=== PATIENT | male | born 1970 | race Caucasian/White ===

== ENCOUNTER 2017-03-31 07:15 | Emergency (ER) | payer BC ==
[~2017-03-31] VITALS: Ht 170.2 cm; Wt 74.8 kg
[~2017-03-31 07:15] MED LIST: AMOXICILLIN500 MG PO; ANAPROX DS550 MG PO; CLINDAMYCIN HC300 MG PO; IBUPROFEN600 MG PO; IBUPROFEN800 MG PO; LEVAQUIN500 MG PO; NORCO 5-325 TA1 EACH PO; ZITHROMAX250 MG PO
[2017-03-31] MEDS ORDERED: CLEOCIN HCL300 MG PO (08:11)
[2017-03-31] MEDS ORDERED: ANUSOL-HC25 MG PR (08:11)
[2017-04-16] MEDS ORDERED: FLAGYL500 MG PO (23:13)
[2017-04-16] MEDS ORDERED: CIPRO500 MG PO (23:13)
== END 2017-03-31 08:20 | disposition home or self-care (01) ==
LOC: ED 07:15
DX: L02.31 Cutaneous abscess of buttock (principal); K64.8 Other hemorrhoids; F17.200 Nicotine dependence, unspecified, uncomplicated
CPT/HCPCS: 99283

== ENCOUNTER 2017-04-19 11:49 | Emergency (ER) | payer BC ==
[~2017-04-19] VITALS: Ht 170.2 cm; Wt 74.4 kg
[~2017-04-19 11:49] MED LIST changes: +ANUSOL-HC25 MG PR; +CIPRO500 MG PO; +CLEOCIN HCL300 MG PO; +FLAGYL500 MG PO
[2017-04-19] MEDS ORDERED: PROTONIX40 MG PO (13:32)
[2017-04-19] MEDS ORDERED: NORCO 5-325 TA1 EACH PO (13:32)
== END 2017-04-19 13:50 | disposition home or self-care (01) ==
LOC: ED 11:49
DX: K52.9 Noninfective gastroenteritis and colitis, unspecified (principal); F41.9 Anxiety disorder, unspecified; I10 Essential (primary) hypertension; F17.200 Nicotine dependence, unspecified, uncomplicated; Z79.2 Long term (current) use of antibiotics; Z79.899 Other long term (current) drug therapy
CPT/HCPCS: 74177; 80053; 81001; 82150; 83690; 85025; 96374; 96375; 99284; J1170; J2405; J7030; Q9967

== ENCOUNTER 2017-04-28 11:53 | Day surgery (SDC) | payer BC ==
[~2017-04-28] VITALS: Ht 170.2 cm; Wt 74.4 kg
[~2017-04-28 11:53] MED LIST changes: +PROTONIX40 MG PO
--- NOTE | 2017-04-28 14:11 | NUR ---
04/28/17 1410 Ronda Craig 1404 PATIENT AWAKE ON ARRIVAL TO PACU, RESP EVEN AND UNLABORED, NC AT 2 LITERS. DENIES PAIN OR NAUESA. 1410 PATIENT SITTING UP ON STRETCHER, TEXTING ON PHONE. OFF OXYGEN.
--- NOTE | 2017-04-30 13:25 | OR ---
[facility] [address] [place], [place] [address] Signed DATE OF OPERATION: 04/28/2017 SURGEON: Raji Dewitt MD PREOPERATIVE DIAGNOSIS: Episodic rectal bleeding with abdominal pain and bloating. POSTOPERATIVE DIAGNOSIS: Internal hemorrhoids. No evidence of inflammatory bowel disease. PROCEDURE: Total colonoscopy to cecum with intubation of ileum and multiple biopsies. ANESTHESIA: Intravenous sedation, fentanyl 150 mcg, Versed 7 mg. INDICATION: This 46-year-old white man is a patient of Cristopher Souza. He has been seen in the emergency room for rectal bleeding and lower abdominal pain and bloating. He sought at one time mostly to have a hemorrhoidal problem, but further concern of the possibility of inflammatory bowel disease has been made. He has undergone a CT scan, which showed possibly thickened colon throughout. Stool studies have been undertaken. He is empirically treated with Cipro 500 mg daily and Flagyl 500 three times a day. He is admitted at this time to undergo colonoscopy to assess for inflammatory bowel disease or other etiology of his symptoms. He understands the risks of bleeding, infection, and perforation related to colonoscopy and wished to proceed. FINDINGS: The prep was excellent. Complete colonoscopy was undertaken to the cecum. The ileocecal valve was easily identified and intubated. The ileum appeared reasonably normal. Biopsies were taken to assess for occult inflammatory bowel disease. The mucosa of the colon was normal as well. Biopsies taken of the rectum, however, to assess for collagenous colitis and so on. Retroflexed view did confirm internal hemorrhoidal changes. There was no sign of active fissure. DESCRIPTION OF PROCEDURE: The patient was brought to the endoscopy suite and placed in lateral decubitus position, given intravenous sedation to the point of slurred speech and nystagmus. Digital rectal examination was normal. Electronically Signed By: RAJI DEWITT MD 04/30/17 1325 PATIENT NAME: ANUJ HAWKINS OPERATIVE REPORT DATE OF : 68 REPORT #: [id number] PHYSICIAN: RAJI DEWITT MD PCP: CRISTOPHER SOUZA REPORT IS CONFIDENTIAL AND NOT TO BE RELEASED WITHOUT AUTHORIZATION [facility] [address] [place], [place] [address] Signed An Olympus video colonoscope was passed in the rectum and manipulated throughout the colon, ultimately intubating the cecum. The ileocecal valve was identified and with a fair amount of effort, ultimately intubated and the terminal ileum fully examined. The more proximal of the ileum got the more normal in looks. Biopsies were taken proximally and distally. The scope was withdrawn back to the cecum, which appeared reasonably normal. The scope was further withdrawn and examination throughout showed no sign of abnormality, specifically no diverticular formation, colitis, or cancer polyps. There were no polyps noted in any area. The rectum was normal in appearance, though it was biopsied to assess for occult colitis. Retroflexed view confirmed internal hemorrhoidal changes. Scope was removed through the anal canal carefully showing no evidence of anal fissure concordant to office examination recently. He was taken to recovery room in good condition. CONCLUDING DIAGNOSIS: No evidence of inflammatory bowel disease, cancer polyps, diverticular formation, or other issue other than internal hemorrhoids. This could certainly account for episodic rectal bleeding. PLAN: We will initiate Citrucel tablespoon daily. We will see him back in the office in about a month or so. We will go bowel hygiene tips as well. Consideration for hemorrhoidal banding might be made depending on his course at this point. MD SHARI Espinosa/DERRICKL /[id number] cc: MD Cristopher Thompson FNP Copies: BOBBY GALDAMEZ MD Electronically Signed By: RAJI DEWITT MD 04/30/17 1325 PATIENT NAME: ANUJ HAWKINS OPERATIVE REPORT DATE OF : [birth year] REPORT #: [id number] PHYSICIAN: RAJI DEWITT MD PCP: CRISTOPHER SOUZA REPORT IS CONFIDENTIAL AND NOT TO BE RELEASED WITHOUT AUTHORIZATION [address] [place], [place] [address] Signed CRISTOPHER SOUZA ~ Electronically Signed By: RAJI DEWITT MD 04/30/17 1325 PATIENT NAME: ANUJ HAWKINS OPERATIVE REPORT DATE OF : 68 REPORT #: [id number] PHYSICIAN: RAJI DEWITT MD PCP: CRISTOPHER SOUZA REPORT IS CONFIDENTIAL AND NOT TO BE RELEASED WITHOUT AUTHORIZATION
== END 2017-04-28 14:40 | disposition home or self-care (01) ==
LOC: OPS 11:53 → DS 11:53 → OPS 13:00 → DS 13:00 → OPS 14:40
PROVIDERS: Surgery
PROC: 0DBP8ZX Excision of Rectum, Via Natural or Artificial Opening Endoscopic, Diagnostic (ICD-10-PCS; 2017-04-28)
PROC: 0DBB8ZX Excision of Ileum, Via Natural or Artificial Opening Endoscopic, Diagnostic (ICD-10-PCS; principal; 2017-04-28 13:00)
DX: K62.5 Hemorrhage of anus and rectum (principal); K64.8 Other hemorrhoids; F41.9 Anxiety disorder, unspecified; I10 Essential (primary) hypertension; F17.200 Nicotine dependence, unspecified, uncomplicated; Z90.49 Acquired absence of other specified parts of digestive tract; Z98.890 Other specified postprocedural states
CPT/HCPCS: 99153; G0500; J2250; J3010; J7120

== ENCOUNTER 2017-07-04 11:58 | Day surgery (SDC) | payer BC ==
[~2017-07-04] VITALS: Ht 170.2 cm; Wt 74.4 kg
--- NOTE | 2017-07-04 13:13 | NUR ---
07/04/17 Tiana3 Bessy Mccollum 1309-PATIENT ARRIVED TO PACU ON 3L NC O2 SAT 98% PATIENT AWAKE DENIES PAIN OR NAUSEA. ABDOMEN SOFT. RR EVEN. DOZES BACK TO SLEEP
--- NOTE | 2017-07-06 09:27 | OR ---
[facility] [address] [place], [place] [address] Signed DATE OF OPERATION: 07/04/2017 SURGEON: Raji Dewitt MD PREOPERATIVE DIAGNOSES: Persistent upper abdominal fullness, bloating, and episodic pain. POSTOPERATIVE DIAGNOSES: Hiatal hernia with mild distal esophagitis and mild antral gastritis. PROCEDURES PERFORMED: Esophagogastroduodenoscopy with biopsy. ANESTHESIA: Intravenous sedation with fentanyl 100 mcg and Versed 5 mg. INDICATION: This 46-year-old white man is a patient of JUAN Franklin. I have seen him in the past for lower abdominal pain, for which colonoscopy was performed as he did have concurrent diarrhea. The colonoscopy was relatively normal. His symptoms now include upper abdominal bloating, fullness, and discomfort following meals. He does have family history of biliary disease. A gallbladder ultrasound was performed earlier this morning, which on my examination showed no sign of stones. He was admitted to undergo upper endoscopy to better characterize the problem. The patient is currently on pantoprazole (Protonix) 40 mg daily. FINDINGS: There was a hiatal hernia and mild distal esophagitis. There was no sign of Birmingham's epithelium. There was mild antral gastritis, but no ulceration. CLOtest was negative 15 minutes post procedure. The duodenum was normal. DESCRIPTION OF PROCEDURE: The patient was brought to the operating room #2, temporary endoscopy suite, placed in the lateral decubitus position, given intravenous sedation to the point of slurred speech and nystagmus with full cardiopulmonary monitoring. A bite block was placed. An Olympus video upper endoscope was passed in the hypopharynx. The vocal cords were normal. Scope was advanced to the esophagus throughout its length, it was normal, except in the distal portion, where there was mild chronic inflammatory changes, no sign of Birmingham's epithelium, stricture, neoplasm, or other issue. The scope was advanced Electronically Signed By: RAJI DEWITT MD 07/06/17 0927 PATIENT NAME: ANUJ HAWKINS OPERATIVE REPORT DATE OF : 68 REPORT #: [id number] PHYSICIAN: RAJI DEWITT MD PCP: TALIB SOUZA REPORT IS CONFIDENTIAL AND NOT TO BE RELEASED WITHOUT AUTHORIZATION [facility] [address] [place], [place] [address] Signed into the stomach, which was insufflated with air. There was no sign of bile within the stomach, fair amount of saliva though. Rugal folds appeared normal. The antrum showed mild inflammatory change. The pylorus was normal. Biopsies were taken of the antrum for both ZANA and pathologic testing. The scope was passed to the duodenum, which was insufflated with air. The second and bulbar portions appeared reasonably normal. Biopsies were obtained. The scope was withdrawn and retroflexed view undertaken showing a hiatal hernia. The proximal stomach showed no other abnormality. The scope was straightened, withdrawn to the distal esophagus, where biopsies were then obtained of the distal esophageal mucosa. There was one area, where a suspicion of possible straight relatively superficial varix was noted, but likely not corporate representative truly of portal hypertension. The scope was withdrawn and removed, and the patient was taken to the recovery room in good condition. CONCLUDING DIAGNOSIS: Notably positive for hiatal hernia and mild distal esophagitis, no evidence of Birmingham's epithelium. PLAN: Given the findings on the ultrasound earlier in the day, we will organize for CCK-HIDA test to be performed. He will see us back after that. He should maintain Protonix 40 mg daily for the time being. MD SHARI Espinosa/DERRICKL /[id number] cc: JUAN Page Copies: TALIB SOUZA ~ Electronically Signed By: RAJI DEWITT MD 07/06/17 0927 PATIENT NAME: ANUJ HAWKINS OPERATIVE REPORT DATE OF : 68 REPORT #: [id number] PHYSICIAN: RAJI DEWITT MD PCP: TALIB SOUZA REPORT IS CONFIDENTIAL AND NOT TO BE RELEASED WITHOUT AUTHORIZATION
== END 2017-07-04 13:57 | disposition home or self-care (01) ==
LOC: OPS 11:58 → DS 11:58 → OPS 13:00 → DS 13:00 → OPS 13:57
PROVIDERS: Surgery
PROC: 0DB78ZX Excision of Stomach, Pylorus, Via Natural or Artificial Opening Endoscopic, Diagnostic (ICD-10-PCS; 2017-07-04)
PROC: 0DB28ZX Excision of Middle Esophagus, Via Natural or Artificial Opening Endoscopic, Diagnostic (ICD-10-PCS; 2017-07-04)
PROC: 0DB38ZX Excision of Lower Esophagus, Via Natural or Artificial Opening Endoscopic, Diagnostic (ICD-10-PCS; 2017-07-04)
PROC: 0DB98ZX Excision of Duodenum, Via Natural or Artificial Opening Endoscopic, Diagnostic (ICD-10-PCS; principal; 2017-07-04 13:00)
DX: K21.0 Gastro-esophageal reflux disease with esophagitis (principal); K29.80 Duodenitis without bleeding; K29.50 Unspecified chronic gastritis without bleeding; K44.9 Diaphragmatic hernia without obstruction or gangrene; K31.9 Disease of stomach and duodenum, unspecified; F17.210 Nicotine dependence, cigarettes, uncomplicated
CPT/HCPCS: G0500; J2250; J3010; J7120

== ENCOUNTER 2017-08-10 06:50 | Day surgery (SDC) | payer BC ==
[~2017-08-10] VITALS: Ht 170.2 cm; Wt 72.6 kg
[2017-08-10] MEDS ORDERED: MAPAP325 MG PO (11:32)
[2017-08-10] MEDS ORDERED: IBUPROFEN600 MG PO (11:32)
[2017-08-10] MEDS ORDERED: OXYCODON-ACETA1 EAC2 PO (11:32)
[2017-08-10] MEDS ORDERED: ZOFRAN ODT4 MG SL (11:33)
--- NOTE | 2017-08-10 11:38 | NUR ---
08/10/17 1138 Aide Aguillon 1117 PT ARRIVED IN PACU WITH ORAL AIRWAY IN PLACE AND CHIN LIFT NEEDED. 1128 PT RESPONSIVE TO VERBAL STIMULI. ORAL AIRWAY REMOVED. OXYGEN DECREASED TO 6L VIA MASK WITH SATS 100%. SNORING WHEN NOT STIMULATED.
--- NOTE | 2017-08-10 12:15 | NUR ---
PT IS BACK TO DS FROM PACU. HE IS REPORTING NO PAIN. HE HAS BEEN UP TO THE BATHROOM AND VOIDED 100ML. SIGNIFICANT OTHER IS AT THE BEDSIDE AT THIS TIME. WATER AND CRACKERS ON BEDSIDE TABLE. CALL LIGHT IS WITHIN REACH. WILL REASSESS WITHIN THE HOUR.
--- NOTE | 2017-08-10 13:25 | NUR ---
LE 1230: VSS. PT DENIES PAIN OR NAUSEA ON ASSESSMENT. PT NOTES THAT STERISTIP OVER UMBILICUS HAS COME LOOSE ON UPPER PORTION, OFFERED TO PLACE GAUZE AND TAPE OVER TO KEEP INTACT UNTIL READY TO FALL OFF. PT PROVIDED APPLESAUCE AND PUDDING PER REQUEST. PT TOLERATES PO WELL. 1300: DC CRITERIA MET. DC INSTRUCTIONS GIVEN IN PRESENCE OF PT AND SPOUSE. PT PROVIDED ICE AND SODA IN TO-GO CUP. PT DC'S VIA WC WITH SPOUSE FROM DS RM 4.
--- NOTE | 2017-08-11 09:15 | OR ---
[facility] [address] [facility] [place] [place] [address] Signed DATE OF OPERATION: 08/10/2017 SURGEON: Raji Dewitt MD PREOPERATIVE DIAGNOSIS: Chronic acalculous cholecystitis. POSTOPERATIVE DIAGNOSIS: Chronic acalculous cholecystitis. PROCEDURES PERFORMED: 1. Laparoscopic cholecystectomy with intraoperative cholangiogram. 2. Surgeon-directed fluoroscopy. ANESTHESIA: General endotracheal, Raji Blanchard CRNA, and local 20 mL of 0.25% Marcaine with epinephrine. INDICATIONS FOR PROCEDURE: This 46-year-old white man is a patient of JUAN Franklin, and has been evaluated thoroughly by me with postprandial upper abdominal pain and persistent nausea. His evaluation has included upper endoscopy and colonoscopy as well as biliary evaluation including gallbladder ultrasound and a CCK-HIDA test. A CCK-HIDA test shows normal ejection fraction of 99% with marked reproduction of his symptoms. The patient has colon and rectal surgeon nausea and vomiting with often bilious fluid and poor oral intake as a result of all of this, which has been progressive and persistent. He does not have strong family history of biliary disease that he is aware of however. I have considered the possibility of a gastroparesis problem, but the patient declines evaluation to include solid-food emptying study. Given the symptoms on the CCK-HIDA test, consideration was made for a biliary colic origin of his pains and cholecystectomy has been offered. He strongly wishes to pursue it as does his . The risks of bleeding, infection, and most importantly failure to cure his symptoms have been reviewed in detail. They both understand and wished to proceed. He also understands that cholangiogram may demonstrate a biliary anomaly or other abnormality, for which additional treatment may be required. FINDINGS: The liver appeared normal. The gallbladder did have chronic inflammatory appearance. There were adhesions to undersurface of the gallbladder to surrounding omentum. The Electronically Signed By: RAJI DEWITT MD 08/11/17 0915 PATIENT NAME: ANUJ HAWKINS OPERATIVE REPORT DATE OF : 68 REPORT #: [id number] PHYSICIAN: RAJI DEWITT MD PCP: TALIB SOUZA REPORT IS CONFIDENTIAL AND NOT TO BE RELEASED WITHOUT AUTHORIZATION [facility] [address] [place], [place] [address] Signed gallbladder once excised showed markedly attenuated mucosa. No sign of cholesterolosis or stones. Cholangiogram was normal. There were no other findings of concern and the normal appearing stomach was noted grossly. DESCRIPTION OF PROCEDURE: The patient was brought to the operating room, given a general endotracheal anesthetic. Preoperative antibiotic Ancef was given. Sequential compression device stockings were used and heparin subcutaneously administered. The abdomen was prepared with a chlorhexidine solution and draped sterilely. An infraumbilical incision was made and using an open Ko cannula technique. Pneumoperitoneum was achieved to a level of 14 mmHg of carbon dioxide gas. Intraabdominal inspection showed no sign of ascites or carcinomatosis. The fundus of the gallbladder was noted to be dull paez white in appearance suggestive of chronic inflammation. The liver appeared normal. Three additional trocars were placed in usual configuration in the subxiphoid, right midclavicular, and right anterior axillary line. The gallbladder was elevated cephalad and omental adhesions to the undersurface of the gallbladder were taken down with blunt dissection. The gallbladder was more fully elevated and the infundibulum was grasped and retracted laterally. Using blunt and electrocautery dissection, the triangle of Calot was dissected free ultimately identifying well the cystic duct. Clips were applied of the cystic arterial branches as necessary. A clip was applied to the gallbladder cystic duct junction and a transverse choledochotomy was made in the cystic duct. Retrograde milking of the cystic duct showed clear bile. Using an Burns-type cholangiocatheter, intraoperative cholangiography was undertaken showing free flow of contrast in biliary tree with prompt emptying into the duodenum. There was no sign of filling defect, biliary anomalies, or other problem. The catheter was removed and the cystic duct was triply clipped and divided, and the gallbladder was dissected free in a retrograde fashion using electrocautery. Clips were applied as necessary to subvesical arterial branches. The gallbladder was extracted through the infraumbilical port site and opened on the back table and found to have chronic inflammatory change in the mucosa, attenuated mucosa. No sign of cholesterolosis and no sign of stone or neoplasm. Irrigation was undertaken in subhepatic space. There was no sign of bile leak, bleeding, or other problems. The trocars were removed under direct visualization. Some cautery was applied to the 5-mm trocar sites laterally, though good hemostasis was ultimately noted. The infraumbilical fascial incision was reapproximated with interrupted #0 Vicryl suture. All wounds were copiously irrigated with saline solution and injected with 0.25% Marcaine with epinephrine anesthetic. The skin was closed with interrupted #3-0 Vicryl. Steri-Strips were applied. Electronically Signed By: RAJI DEWITT MD 08/11/17 0915 PATIENT NAME: ANUJ HAWKINS OPERATIVE REPORT DATE OF : 68 REPORT #: [id number] PHYSICIAN: RAJI DEWITT MD PCP: TALIB SOUZA REPORT IS CONFIDENTIAL AND NOT TO BE RELEASED WITHOUT AUTHORIZATION [facility] [address] [place] [address] Signed The patient was ultimately extubated and transferred to recovery room in good condition having suffered no complications. Sponge, needle, and instrument counts were reported as correct x3. MD SHARI Espinosa/SAMMY /[id number] cc: JUAN Page Copies: TALIB SOUZA ~ Electronically Signed By: RAJI DEWITT MD 08/11/17 0915 PATIENT NAME: ANUJ HAWKINS OPERATIVE REPORT DATE OF : [birth year] REPORT #: [id number] PHYSICIAN: RAJI DEWITT MD PCP: TALIB SOUZA REPORT IS CONFIDENTIAL AND NOT TO BE RELEASED WITHOUT AUTHORIZATION
== END 2017-08-10 13:20 | disposition home or self-care (01) ==
LOC: DS 06:50
PROVIDERS: Surgery
PROC: BF13YZZ Fluoroscopy of Gallbladder and Bile Ducts using Other Contrast (ICD-10-PCS; 2017-08-10)
PROC: 0FT44ZZ Resection of Gallbladder, Percutaneous Endoscopic Approach (ICD-10-PCS; principal; 2017-08-10 09:30)
DX: K81.1 Chronic cholecystitis (principal); F17.210 Nicotine dependence, cigarettes, uncomplicated; K21.9 Gastro-esophageal reflux disease without esophagitis; M54.5 Low back pain; G89.29 Other chronic pain
CPT/HCPCS: 00790; 74300; J0330; J0690; J1100; J1644; J1885; J2250; J2270; J2405; J2550; J2704; J2765; J3010; J7120; Q9967

== ENCOUNTER 2018-03-30 16:14 | Observation (INO) | payer BC ==
[~2018-03-30] VITALS: Ht 170.2 cm; Wt 76.8 kg
[~2018-03-30 16:14] MED LIST changes: +MAPAP325 MG PO; +OXYCODON-ACETA1 EAC2 PO; +ZOFRAN ODT4 MG SL
--- OUTSIDE RECORDS SUMMARY | 2018-03-30 16:18 | XMS ---
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 Josef has no Care Guidelines for this patient. [place] VISIT COUNT (12 MO.) 4 ALEXIA [facility] TOTAL 4 NOTE: Visits indicate total known visits. ED/C VISIT TRACKING (12 MO.) 03/30/2018 16:15 A[facility]IA M[facility]ra OR TYPE: Emergency COMPLAINT: - L SIDE PAIN,NON INJURY 04/19/2017 11:50 ALEX[facility] Mishra OR TYPE: Emergency COMPLAINT: - ABD PAIN/FATIGUE DIAGNOSES: - Noninfective gastroenteritis and colitis, unspecified - Nausea - Nicotine dependence, unspecified, uncomplicated - Anxiety disorder, unspecified - Other bed bug exterminator (current) drug therapy - medical terminologist (current) use of antibiotics - Essential (primary) hypertension 04/16/2017 19:32 ALEXIA Mishra OR TYPE: Emergency COMPLAINT: - RECTAL BLEEDING DIAGNOSES: - Noninfective gastroenteritis and colitis, unspecified - Nicotine dependence, unspecified, uncomplicated - Hemorrhage of anus and rectum - Essential (primary) hypertension - Anxiety disorder, unspecified 03/31/2017 07:16 ALEXIA Mishra OR TYPE: Emergency COMPLAINT: - POSS HEMORRHOIDS DIAGNOSES: - Cutaneous abscess of buttock - Localized swelling, mass and lump, unspecified - Nicotine dependence, unspecified, uncomplicated - Other hemorrhoids INPATIENT VISIT TRACKING (12 MO.) No inpatient visits to display in this time frame [email or web address]
[2018-03-30] MEDS ORDERED: PRILOSEC10 M1 PO (16:38)
--- NOTE | 2018-03-30 22:00 | NUR ---
ASSESSMENT COMPLETE AND PATIENT FEELS LIKE HE IS ESSENTIALLY BACK TO NORMAL AT THIS TIME.
--- NOTE | 2018-03-31 00:05 | NUR ---
PATIENT'S SYMPTOMS ARE RESOLVING AND HE IS FEELING MUCH BETTER. FEELS LIKE HE SHOULD HAVE BEEN ABLE TO GO HOME.
--- NOTE | 2018-03-31 01:57 | NUR ---
PATIENT IN BED WATCHING TV. SYMPTOMS HAVE RESOLVED. NO MORE DEFICITS ON THE LEFT SIDE. UPPER AND LOWER EXTREMITIES HAVE EQUAL STRENGTH AND NO ISSUES WITH THE LEFT EYE. PATIENT SAYS HE IS FEELING GREAT.
--- NOTE | 2018-03-31 04:04 | NUR ---
PATIENT RESTING QUIETLY ON HIS LEFT SIDE REPIRATIONS EVEN AND REGULAR AT 16, EYES CLOSED, CALL LIGHT IN REACH.
--- NOTE | 2018-03-31 05:10 | NUR ---
PATIENT'S LEFT SIDED DEFICITS HAD ESSENTIALLY HAD RESOLVED BY THE TIME HIS FIRST ASSESSMENT WAS DONE AFTER ARRIVING TO THE FLOOR. PATIENT HAS FELT LIKE HE IS READY TO GO HOME. PATIENT HAS RESTED QUIETLY THE SECOND HALF OF THE SHIFT EXCEPT FOR ASESSMENTS AND HAS BEEN DOING WELL. PATIENT CURRENTLY RESTING ON HIS LEFT SIDE, EYES CLOSED, RESPIRATIONS REGULAR AND EVEN AT 16. CALL LIGHT IN REACH.
--- NOTE | 2018-03-31 06:26 | NUR ---
PATIENT HAS COMPLAINT OF 7/10 LOW BACK AND RIGHT KNEE PAIN FROM THE BED. GIVEN 650MG TYLENOL.
--- NOTE | 2018-03-31 07:23 | NUR ---
RECIEVED BEDSIDE REPORT FROM RAJANI GARCIA. PT AWAKE AND ALERT IN BED. REPORTS DISCOMFORT FROM BED AND RIGHT KNEE. NO DIZZINESS, NO SOB, NO WEAKNESS. ALERT AND ORIENTED.
--- NOTE | 2018-03-31 08:49 | NUR ---
PT INDENPENDENT IN ROOM. EATING WELL. REPORTS NO DIZZINESS, NO NAUSEA, NO WEAKNESS. LIME KILN WORKER EQUAL, STRENGTH EQUAL IN BILAT UPPER AND LOWER EXT. PUPILS EQUAL AND REACTIVE. VOIDING WELL.
--- NOTE | 2018-03-31 11:00 | NUR ---
PT RESTING IN BED. PHYSICAL THERAPY EVAL COMPLETE, PT DISCHARGED FROM PHYSICAL THERAPY. NO NEEDS AT THIS TIME.
--- NOTE | 2018-03-31 11:50 | NUR ---
PATIENT TOOK A SHOWER THIS MORNING. IN ROOM.
[2018-03-31] MEDS ORDERED: CLOPIDOGREL75 MG PO (12:12)
[2018-03-31] MEDS ORDERED: LIPITOR40 MG PO (12:13)
[2018-03-31] MEDS ORDERED: ASPIRIN325 MG PO (12:13)
[2018-03-31] MEDS ORDERED: NICOTINE PATCH1 EAC1 TD (12:17)
--- NOTE | 2018-03-31 14:26 | NUR ---
DISCHARGE TEACHING COMPLETE. DISCUSSED FOLLOW UP, MEDICATIONS, WHEN TO CALL THE DR, ACTIVITY, AND DIET. DISCUSSED FOLLOW UP AND HOW TO CHANGE PCP. PT AND SPOUSE VERBALIZED UNDERSTANDING OF INSTRUCTIONS. IV REMOVED, VITALS TAKEN, TELE DC. PT WALKED OUT WITH AIR PRESS OPERATOR.
--- NOTE | 2018-04-01 16:48 | EKG ---
[facility] [address] [facility] [place], [place] [address] Signed Normal sinus rhythm Normal ECG When compared with ECG of 14-JUN-2016 15:01, No significant change was found Confirmed by JOANIE ROBERTS DO ([id number]) on 04/01/2018 4:48:30 PM Electronically Signed By: JOANIE ROBERTS DO 04/01/18 1648 PATIENT NAME: ANUJ HAWKINS ROSEMARYNathan Electrocardiogram DATE OF : 68 PHYSICIAN: JOANIE ROBERTS DO REPORT #: [id number] REPORT IS CONFIDENTIAL AND NOT TO BE RELEASED WITHOUT AUTHORIZATION
== END 2018-03-31 13:49 | disposition home or self-care (01) ==
LOC: ED 16:14 → MS 16:16
PROVIDERS: ADMIT Student in an Organized Health Care Education/Training Program
DX: I63.9 Cerebral infarction, unspecified (principal); G81.94 Hemiplegia, unspecified affecting left nondominant side; F17.210 Nicotine dependence, cigarettes, uncomplicated; K21.9 Gastro-esophageal reflux disease without esophagitis; R29.701 NIHSS score 1; Z79.899 Other long term (current) drug therapy
CPT/HCPCS: 36415; 70450; 70496; 70498; 80048; 80053; 80061; 83036; 83735; 85025; 85610; 85730; 93005; 93010; 97161; 99285-25; G0378; Q9967

== ENCOUNTER 2018-06-29 11:27 | Emergency (ER) | payer BC ==
[~2018-06-29] VITALS: Ht 170.2 cm; Wt 76.8 kg
--- OUTSIDE RECORDS SUMMARY | ~2018-06-29 | XMS | Clinical Summary ---
Demographics + + + | Address | [address] | | | [place] [address] | + + + | Home Phone | | + + + | Preferred Language | Unknown | + + + | Marital Status | | + + + | Hindu Affiliation | 1013 | + + + | Race | Unknown | + + + | Ethnic Group | Unknown | + + + Author + + + | Author | [facility] | | | and [place] | + + + | Organization | [facility] | | | and [place] | + + + | Address | Unknown | + + + | Phone | Unavailable | + + + Support + + + + + | Name | Relationship | Address | Phone | + + + + + | Danyelle Tamayo | ECON | [address], | | | | | [place] [address] | | + + + + + Care Team Providers + +------+ + | Care Cook Cold Meat Name | Role | Phone | + +------+ + | Cristopher Ross NP | PP | | + +------+ + Allergies No Known Allergies Medications + + + +---------+------+------+-------+ | Medication | Sig | Dispensed | Refills | Star | End | Statu | | | | | | t | Date | s | | | | | | Date | | | + + + +---------+------+------+-------+ | DULoxetine | 1 capsule by mouth | 60 | 1 | 12/2 | | Activ | | (CYMBALTA) [address] | at bedtime for 14 | capsule | | 2/20 | | e | | capsule | days; then 2 | | | 17 | | | | | capsules by mouth at | | | | | | | | bedtime | | | | | | + + + +---------+------+------+-------+ Active Problems No known active problems Family History + + +---------+ + | Medical History | Relation | Name | Comments | + + +---------+ + | Heart disease | Brother | | | + + +---------+ + | No known problems | Child | | | + + +---------+ + | No known problems | Child | | | + + +---------+ + | No known problems | Child | | | + + +---------+ + | No known problems | Child | | | + + +---------+ + | No known problems | Daughter | Chelo | | | | | Kobasa | | + + +---------+ + | No known problems | Father | | | + + +---------+ + | No known problems | Maternal | | | | | Grandfath | | | | | er | | | + + +---------+ + | No known problems | Maternal | | | | | Grandmoth | | | | | er | | | + + +---------+ + | Breast cancer | Mother | | | + + +---------+ + | Fibromyalgia | Mother | | | + + +---------+ + | Heart disease | Mother | | | + + +---------+ + | No known problems | Paternal | | | | | Grandfath | | | | | er | | | + + +---------+ + | No known problems | Paternal | | | | | Grandmoth | | | | | er | | | + + +---------+ + + +---------+--------+ + | Relation | Name | Status | Comments | + +---------+--------+ + | Brother | | | | + +---------+--------+ + | Child | | | | + +---------+--------+ + | Child | | | | + +---------+--------+ + | Child | | | | + +---------+--------+ + | Child | | | | + +---------+--------+ + | Daughter | Chelo | Alive | | | | Kobasa | | | + +---------+--------+ + | Father | | Alive | | + +---------+--------+ + | Maternal Grandfather | | | | + +---------+--------+ + | Maternal Grandmother | | | | + +---------+--------+ + | Mother | | Alive | | + +---------+--------+ + | Paternal Grandfather | | | | + +---------+--------+ + | Paternal Grandmother | | | | + +---------+--------+ + Social History + + + +--------+ + | Tobacco Use | Types | Packs/Day | Years | Date | | | | | Used | | + + + +--------+ + | Current Every Day | Cigarettes | 1 | 30 | Started: 09/15/1986 | | Smoker | | | | | + + + +--------+ + + +---+---+---+ | Smokeless Tobacco: | | | | | Never Used | | | | + +---+---+---+ + + +---------+ + | Alcohol Use | Drinks/We | oz/Week | Comments | | | ek | | | + + +---------+ + | Yes | | | Rare | + + +---------+ + + + + | Sex Assigned at | Date Recorded | | | | + + + | Not on file | | + + + + + + + | Job Start Date | Occupation | Industry | + + + + | Not on file | Not on file | Not on file | + + + + + + + + | Travel History | Travel Start | Travel End | + + + + + + | No recent travel history available. | + + Last Filed Vital Signs + + + + | Vital Sign | Reading | Time Taken | + + + + | Blood Pressure | 144/84 | 02/21/2017 1658 PST | + + + + | Pulse | 88 | 01/30/2017 0807 PST | + + + + | Temperature | 36.8 C (98.2 F) | 06/26/2014 1507 PDT | + + + + | Respiratory Rate | 16 | 01/30/2017806 PST | + + + + | Oxygen Saturation | 96% | 06/26/2014 1507 PDT | + + + + | Inhaled Oxygen | - | - | | Concentration | | | + + + + | Weight | 73.5 kg (162 lb) | 01/30/2017806 PST | + + + + | Height | 170.2 cm (5' 7") | 01/30/2017806 PST | + + + + | Body Mass Index | 25.37 | 01/30/2017806 PST | + + + + Plan of Treatment + + + + + | Health Maintenance | Due Date | Last Done | Comments | + + + + + | Vaccine: | | | | | Dtap/Tdap/Td (1 - | 9 | | | | Tdap) | | | | + + + + + | Vaccine: | | | | | Pneumococcal 19-64 | 9 | | | | (PPSV23 only) Medium | | | | | Risk (1 of 1 - | | | | | PPSV23) | | | | + + + + + | Vaccine: Influenza | | | | | (Season Ended) | 9 | | | + + + + + Results Not on filefrom Last 3 Months Advance Directives Patient has advance care planning documents on file. For more information, please contact:[facility] [place] [address]
--- OUTSIDE RECORDS SUMMARY | ~2018-06-29 | XMS | Clinical Summary ---
Demographics + + + | Address | [address] | | | [place] [address] | + + + | Home Phone | | + + + | Preferred Language | Unknown | + + + | Marital Status | | + + + | Gnosticist Affiliation | 1013 | + + + | Race | Unknown | + + + | Ethnic Group | Unknown | + + + Author + + + | Author | [facility] | | | and [place] | + + + | Organization | [facility] | [...] [place], | | | | | [place] [address] | | + + + + + Care Team Providers + +------+ + | Care Taxation Inspector Name | Role | Phone | + [...] documents on file. For more information, please contact:[facility] [place] [address]
[~2018-06-29 11:27] MED LIST changes: +ASPIRIN325 MG PO; +CLOPIDOGREL75 MG PO; +LIPITOR40 MG PO; +NICOTINE PATCH1 EAC1 TD; +PRILOSEC10 M1 PO
--- OUTSIDE RECORDS SUMMARY | 2018-06-29 11:30 | XMS ---
PreManage Notification: ANUJ HAWKINS Security Laborer Demolition Events No recent Security Events currently on file CRITERIA MET - Group Notification - [facility] - Has Care Guidelines CARE PROVIDERS TALIB SOUZA Nurse Practitioner: Family 04/02/2018-Current PHONE: Unknown Josef has no Care Guidelines for this patient. Care History Medical/Surgical 04/02/2018 [facility] - Patient is currently established with [facility]. If patient is seen in the ED during business hours. Please contact [facility] at [facility]. Care Recommendation: This patient has had 5 or more Emergency Department visits in the last 12 months.\T\nbsp; Patient requires education on the scope and purpose of the ED as an acute care provider not a Primary Care Provider and should not be utilized for chronic conditions.\T\nbsp; These are guidelines and the provider should exercise clinical judgment when providing care. E.D. VISIT COUNT (12 MO.) 2 [facility] TOTAL 2 NOTE: Visits indicate total known visits. ED/UCC VISIT TRACKING (12 MO.) 06/29/2018 11:28 [facility] OR TYPE: Emergency COMPLAINT: - WEAKNESS/DIZZINESS 03/30/2018 16:15 [facility] Mishra [place] TYPE: Emergency COMPLAINT: - L SIDE PAIN,NON INJURY INPATIENT VISIT TRACKING (12 MO.) 03/30/2018 16:[address] [facility] OR TYPE: Observation COMPLAINT: - TIA DIAGNOSES: - Nicotine dependence, cigarettes, uncomplicated - Gastro-esophageal reflux disease without esophagitis - Hemiplegia, unspecified affecting left nondominant side - Unspecified disturbances of skin sensation - Other half-way (current) drug therapy - Cerebral infarction, unspecified - NIHSS score 1 [email or web address]
[2018-06-29] MEDS ORDERED: MICROZIDE12.5 MG PO (11:55)
== END 2018-06-29 13:08 | disposition home or self-care (01) ==
LOC: ED 11:27
DX: R53.1 Weakness (principal); Z86.73 Personal history of transient ischemic attack (TIA), and cerebral infarction without residual deficits; F41.9 Anxiety disorder, unspecified; I25.2 Old myocardial infarction; I10 Essential (primary) hypertension; F17.200 Nicotine dependence, unspecified, uncomplicated; Z90.49 Acquired absence of other specified parts of digestive tract; Z79.82 Long term (current) use of aspirin; Z79.899 Other long term (current) drug therapy
CPT/HCPCS: 80053; 81001; 82550; 85025; 99284

== ENCOUNTER 2018-08-04 12:21 | Emergency (ER) | payer BC ==
[~2018-08-04] VITALS: Ht 170.2 cm; Wt 76.8 kg
[~2018-08-04 12:21] MED LIST changes: +MICROZIDE12.5 MG PO
--- OUTSIDE RECORDS SUMMARY | 2018-08-04 12:24 | XMS ---
PreManage Notification: ANUJ HAWKINS Security Faculty Administrator Events No recent Security Events currently on file CRITERIA MET - Group Notification - [facility] - Has Care Guidelines CARE PROVIDERS TALIB SOUZA Nurse Practitioner: Family 04/02/2018-Current PHONE: Unknown Josef has no Care Guidelines for this patient. Care History Medical/Surgical 04/02/2018 [facility] - Patient is currently established with [facility]. If patient is seen in the ED during business hours. Please contact CHWs at [facility]. Care Recommendation: This patient has had 5 [...] providing care. E.D. VISIT COUNT (12 MO.) 3 [facility] TOTAL 3 NOTE: Visits indicate total known visits. ED/UCC VISIT TRACKING (12 MO.) 08/04/2018 12:22 [facility] [place] TYPE: Emergency COMPLAINT: - BLOOD PRESSURE PROBLEM 06/29/2018 11:28 [facility] [place] TYPE: Emergency COMPLAINT: - WEAKNESS/DIZZINESS DIAGNOSES: - Other vermin exterminator (current) drug therapy - Essential (primary) hypertension - Nicotine dependence, unspecified, uncomplicated - Personal history of transient ischemic attack (TIA), and cerebral infarction without residual deficits - lobsterman (current) use of aspirin - Anxiety disorder, unspecified - Weakness - Acquired absence of other specified parts of digestive tract - Old myocardial infarction 03/30/2018 16:15 [facility] [place] TYPE: Emergency COMPLAINT: - L SIDE PAIN,NON INJURY INPATIENT VISIT TRACKING (12 MO.) 03/30/2018 16:16 [facility] [place] TYPE: Observation COMPLAINT: - TIA DIAGNOSES: - Nicotine dependence, cigarettes, uncomplicated - Gastro-esophageal reflux disease without esophagitis - Hemiplegia, unspecified affecting left nondominant side - Unspecified disturbances of skin sensation - Other vermin exterminator (current) drug therapy - Cerebral infarction, unspecified - NIHSS score 1 [email or web address]
[2018-08-04] MEDS ORDERED: K-TAB ER20 MEQ PO (13:56)
--- NOTE | 2018-08-05 15:07 | EKG ---
[facility] [address] [place] [address] Signed Normal sinus rhythm Possible Left atrial enlargement Borderline ECG When compared with ECG of 30-MAR-2018 16:58, No significant change was found Confirmed by ADDIS MIN MD ([id number]) on 08/05/2018 3:07:11 PM Electronically Signed By: ADDIS MIN MD 08/05/18 1507 PATIENT NAME: SHRUTHIANUJ RUSSO Electrocardiogram DATE OF : 68 PHYSICIAN: ADDIS MIN MD REPORT #: [id number] REPORT IS CONFIDENTIAL AND NOT TO BE RELEASED WITHOUT AUTHORIZATION
== END 2018-08-04 14:06 | disposition home or self-care (01) ==
LOC: ED 12:21
DX: R53.1 Weakness (principal); E87.6 Hypokalemia; Z86.73 Personal history of transient ischemic attack (TIA), and cerebral infarction without residual deficits; I10 Essential (primary) hypertension; Z90.49 Acquired absence of other specified parts of digestive tract; Z79.82 Long term (current) use of aspirin; Z79.899 Other long term (current) drug therapy
CPT/HCPCS: 80053; 83735; 84484; 85025; 93005; 93010; 99283-25

== ENCOUNTER 2020-06-14 02:37 | Emergency (ER) | payer BC ==
[~2020-06-14] VITALS: Ht 170.2 cm; Wt 74.8 kg
[~2020-06-14 02:37] MED LIST changes: +K-TAB ER20 MEQ PO
--- OUTSIDE RECORDS SUMMARY | 2020-06-14 02:42 | XMS ---
PreManage Notification: ANUJ HAWKINS Security Reciprocating Drill Operator Events No recent Security Events currently on file CRITERIA MET - Group Notification CARE PROVIDERS TALIB SOUZA Nurse Practitioner: Family 04/02/2018-Current PHONE: [phone] Josef has no Care Guidelines for this patient. Care History Medical/Surgical 04/02/2018 [facility] - Patient is currently established with [facility]. If patient is seen in the ED during business hours. Please contact CHWs at [facility]. Care Recommendation: This patient has had 5 [...] providing care. E.D. VISIT COUNT (12 MO.) 1 [facility] TOTAL 1 NOTE: Visits indicate total known visits. ED/UCC VISIT TRACKING (12 MO.) 06/14/2020 02:38 [facility] [place] TYPE: Emergency COMPLAINT: - VOMITING INPATIENT VISIT TRACKING (12 MO.) No inpatient visits to display in this time frame [email or web address]
[2020-06-14] MEDS ORDERED: TADALAFIL5 M1 PO (02:50)
[2020-06-14] MEDS ORDERED: ASPIRIN81 MG PO (02:51)
[2020-06-14] MEDS ORDERED: ONDANSETRON ODT4 MG PO (03:53)
== END 2020-06-14 04:00 | disposition home or self-care (01) ==
LOC: ED 02:37
DX: R11.2 Nausea with vomiting, unspecified (principal); I10 Essential (primary) hypertension; Z86.73 Personal history of transient ischemic attack (TIA), and cerebral infarction without residual deficits; F17.200 Nicotine dependence, unspecified, uncomplicated; Z79.899 Other long term (current) drug therapy; Z79.82 Long term (current) use of aspirin
CPT/HCPCS: 80053; 83690; 85025; 99284; J7030

== ENCOUNTER 2021-09-18 15:33 | Emergency (ER) | payer BC ==
[~2021-09-18] VITALS: Ht 170.2 cm; Wt 80.1 kg
[~2021-09-18 15:33] MED LIST changes: +ASPIRIN81 MG PO; +ONDANSETRON ODT4 MG PO; +TADALAFIL5 M1 PO
--- OUTSIDE RECORDS SUMMARY | 2021-09-18 15:40 | XMS ---
PreManage Notification: ANUJ HAWKINS Security Advisory Services Associate Events No recent Security Events currently on file CRITERIA MET - Group Notification CARE PROVIDERS TALIB SOUZA Nurse Practitioner: Family 04/02/2018-Current PHONE: Unknown ALFREDO REDDY [facility] 06/15/2020-Current PHONE: Unknown Josef has no Care Guidelines for this patient. Care History Medical/Surgical 04/02/2018 [facility] - Patient is currently established with [facility]. If patient is seen in the ED during business hours. Please contact CHWs at [facility]. Care Recommendation: This patient has had [...] care. E.D. VISIT COUNT (12 MO.) 1 [facility] TOTAL 1 NOTE: Visits indicate total known visits. ED/UCC VISIT TRACKING (12 MO.) 09/18/2021 15:34 [facility] [place] TYPE: Emergency COMPLAINT: - BACK PAIN INPATIENT VISIT TRACKING (12 MO.) No inpatient visits to display in this time frame [email or web address]
[2021-09-18] MEDS ORDERED: HYDROCHLOROTH12.5 MG PO (17:55)
[2021-09-18] MEDS ORDERED: WELLBUTRIN XL150 MG PO (17:56)
[2021-09-18] MEDS ORDERED: HYDROCODON-ACE1 EA10 PO (18:47)
== END 2021-09-18 19:20 | disposition home or self-care (01) ==
LOC: ED 15:33
DX: S39.012A Strain of muscle, fascia and tendon of lower back, initial encounter (principal); X50.9XXA Other and unspecified overexertion or strenuous movements or postures, initial encounter; I10 Essential (primary) hypertension; F17.200 Nicotine dependence, unspecified, uncomplicated; Z79.899 Other long term (current) drug therapy; Z79.82 Long term (current) use of aspirin
CPT/HCPCS: 72100; 96372; 99283-25; A9270; J1885; J3360

== ENCOUNTER 2021-12-24 23:16 | Emergency (ER) | payer OTHER, BC ==
[~2021-12-24] VITALS: Ht 170.2 cm; Wt 80.1 kg
[~2021-12-24 23:16] MED LIST changes: +HYDROCHLOROTH12.5 MG PO; +HYDROCODON-ACE1 EA10 PO; +WELLBUTRIN XL150 MG PO
--- OUTSIDE RECORDS SUMMARY | 2021-12-24 23:20 | XMS ---
PreManage Notification: ANUJ HAWKINS Security Patternmaker All Around Events No recent Security Events currently on file CRITERIA MET - Group Notification CARE PROVIDERS TALIB SOUZA Nurse Practitioner: Family 04/02/2018-Current PHONE: Unknown ALFREDO REDDY [facility] 06/15/2020-Current PHONE: Unknown Josef has no Care Guidelines for this patient. Care History Medical/Surgical 04/02/2018 [facility] - Patient is currently established with [facility]. If patient is seen in the ED during business hours. Please contact CHWs at [facility]. Care Recommendation: This patient has had [...] care. E.D. VISIT COUNT (12 MO.) 2 [facility] TOTAL 2 NOTE: Visits indicate total known visits. ED/UCC VISIT TRACKING (12 MO.) 12/24/2021 23:17 [facility] [place] TYPE: Emergency COMPLAINT: - SORE THROAT 09/18/2021 15:34 [facility] [place] TYPE: Emergency COMPLAINT: - BACK PAIN DIAGNOSES: - Other adapted physical education teacher (current) drug therapy - Essential (primary) hypertension - Strain of muscle, fascia and tendon of lower back, initial encounter - Other and unspecified overexertion or strenuous movements or postures, initial encounter - Low back pain, unspecified - Nicotine dependence, unspecified, uncomplicated - picking table worker (current) use of aspirin INPATIENT VISIT TRACKING (12 MO.) No inpatient visits to display in this time frame [email or web address]
[2021-12-24] MEDS ORDERED: LIDOCAINE HCL100 ML MT (23:39)
[2021-12-24] MEDS ORDERED: AMOX TR-K CLV1 EAC1 PO (23:39)
== END 2021-12-25 00:02 | disposition home or self-care (01) ==
LOC: ED 23:16
DX: J02.9 Acute pharyngitis, unspecified (principal); I10 Essential (primary) hypertension; F17.200 Nicotine dependence, unspecified, uncomplicated; Z79.899 Other long term (current) drug therapy; Z79.82 Long term (current) use of aspirin
CPT/HCPCS: 99282

== ENCOUNTER 2022-01-05 05:42 | Emergency (ER) | payer OTHER, BC ==
[~2022-01-05] VITALS: Ht 170.2 cm; Wt 80.0 kg
[~2022-01-05 05:42] MED LIST changes: +AMOX TR-K CLV1 EAC1 PO; +LIDOCAINE HCL100 ML MT
--- OUTSIDE RECORDS SUMMARY | 2022-01-05 05:46 | XMS ---
PreManage Notification: ANUJ HAWKINS Security Tile Roofer Events No recent Security Events currently on file CRITERIA MET - [facility] - 2 Visits in 30 Days - Group Notification CARE PROVIDERS TALIB SOUZA Nurse Practitioner: Family 04/02/2018-Current PHONE: Unknown ALFREDO REDDY [facility] 06/15/2020-Current PHONE: Unknown Josef has no Care Guidelines for this patient. Care History Medical/Surgical 04/02/2018 [facility] - Patient is currently established with [facility]. If patient is seen in the ED during business hours. Please contact CHWs at [facility]. Care Recommendation: This patient has had [...] care. E.D. VISIT COUNT (12 MO.) 3 [facility] TOTAL 3 NOTE: Visits indicate total known visits. ED/UCC VISIT TRACKING (12 MO.) 01/05/2022 05:43 [facility] [place] TYPE: Emergency COMPLAINT: - VOMITING, DIARRHEA 12/24/2021 23:17 [facility] [place] TYPE: Emergency COMPLAINT: - SORE THROAT DIAGNOSES: - [facility] (current) use of aspirin - Acute pharyngitis, unspecified - Other retirement (current) drug therapy - Nicotine dependence, unspecified, uncomplicated - Essential (primary) hypertension 09/18/2021 15:[address] [facility] [place] TYPE: Emergency COMPLAINT: - BACK PAIN DIAGNOSES: - Strain of muscle, fascia and tendon of lower back, initial encounter - Other and unspecified overexertion or strenuous movements or postures, initial encounter - Low back pain, unspecified - Nicotine dependence, unspecified, uncomplicated - [facility] (current) use of aspirin - Other vermin exterminator (current) drug therapy - Essential (primary) hypertension INPATIENT VISIT TRACKING (12 MO.) No inpatient visits to display in this time frame [email or web address]
[2022-01-05] MEDS ORDERED: LOMOTIL TABLET1 EACH PO (07:04)
[2022-01-05] MEDS ORDERED: ONDANSETRON ODT8 MG PO (07:04)
== END 2022-01-05 07:21 | disposition home or self-care (01) ==
LOC: ED 05:42
DX: A08.4 Viral intestinal infection, unspecified (principal); Z20.822 Contact with and (suspected) exposure to COVID-19; I10 Essential (primary) hypertension; Z86.73 Personal history of transient ischemic attack (TIA), and cerebral infarction without residual deficits; F17.200 Nicotine dependence, unspecified, uncomplicated; Z79.82 Long term (current) use of aspirin; Z79.899 Other long term (current) drug therapy
CPT/HCPCS: 36415; 80053; 81003; 85025; 87502; 99284; A9270; U0003

== ENCOUNTER 2023-11-19 09:51 | Emergency (ER) | payer BC ==
[~2023-11-19] VITALS: Ht 170.2 cm; Wt 81.9 kg
[~2023-11-19 09:51] MED LIST changes: +CYCLOBENZAPRINE10 MG PO; +DICLOFENAC SODI50 GM TP; +LOMOTIL TABLET1 EACH PO; +OMEPRAZOLE20 MG PO; +ONDANSETRON ODT8 MG PO; +TADALAFIL10 MG PO
[2023-11-19 10:23] LABS: BASOPHILS 0.5 % (0-2); EOSINOPHILS 1.4 % (0-6); HEMATOCRIT 41.6 % (35.0-50.0); HEMOGLOBIN 14.7 g/dL (12.0-18.0); LYMPHOCYTES 23.7 % (24-44); MCH 35.1 (27-36); MCHC 35.4 g/dl (30-36); MCV 99.1 fl (81-99); MONOCYTES 10.1 % (0-12); NEUTROPHILS 64.3 % (39-80); PLATELET COUNT 170 K/uL (140-440); RDW 15.4 (10.5-15.0)
[2023-11-19 10:40] LABS: ALBUMIN 3.4 g/dL (3.4-5.0); ALBUMIN/GLOBULIN RATIO 0.92 (1.1-2.4); ALKALINE PHOSPHATASE 83 U/L (46-116); ALT (SGPT) 49 U/L (14-59); ANION GAP 10.7 (7-21); AST (SGOT) 23 U/L (15-37); BILIRUBIN, TOTAL 0.3 ng/dL (0.2-1.0); BUN/CREATININE RATIO 14.81 (6.0-28.6); CARBON DIOXIDE 30 mmol/L (21-32); CHLORIDE 104 mmol/L (98-107); CREATININE, SERUM 1.08 mg/dL (0.70-1.30); GLOMERULAR FILTRATION RATE,EST 82 mL/min (>60); POTASSIUM 3.7 mmol/L (3.5-5.1); PROTEIN, TOTAL 7.1 g/dL (6.4-8.2); UREA NITROGEN 16 mg/dL (7-18)
[2023-11-19 10:52] LABS: INFLUENZA B NAA NEGATIVE (NEGATIVE); RESPIRATORY SYNCYTIAL VIR NAA NEGATIVE (NEGATIVE)
[2023-11-19 11:25] VITALS: BP 138/89
--- NOTE | 2023-11-21 19:52 | EKG ---
[facility] [address] [place] [address] Signed Normal sinus rhythm Normal ECG When compared with ECG of 04-AUG-2018 12:43, No significant change was found Confirmed by Fercho Novoa MD ([id number]) on 11/21/2023 7:51:59 PM Electronically Signed By: FERCHO NOVOA MD 11/21/231951 PATIENT NAME: ANUJ HAWKINS RAFAELA Electrocardiogram DATE OF : 68 PHYSICIAN: FERCHO NOVOA MD REPORT #: [id number] REPORT IS CONFIDENTIAL AND NOT TO BE RELEASED WITHOUT AUTHORIZATION
== END 2023-11-19 11:27 | disposition home or self-care (01) ==
LOC: ED 09:51
PROVIDERS: Emergency Medicine
DX: J06.9 Acute upper respiratory infection, unspecified (principal); I10 Essential (primary) hypertension; F17.200 Nicotine dependence, unspecified, uncomplicated; Z86.73 Personal history of transient ischemic attack (TIA), and cerebral infarction without residual deficits; Z79.82 Long term (current) use of aspirin; Z79.899 Other long term (current) drug therapy
CPT/HCPCS: 36415; 71045; 80053; 84484; 85025; 87502; 93005; 93010; 99285-25; U0002

== ENCOUNTER 2024-01-29 13:12 | Emergency (ER) | payer BC ==
[~2024-01-29] VITALS: Ht 170.2 cm; Wt 80.7 kg
[2024-01-29] MEDS ORDERED: diphenhydrAMINE HCL 50 MG CAP PO ONE (13:30)
[2024-01-29] MEDS ORDERED: FAMOTIDINE 20 MG TAB PO ONE (13:30)
[2024-01-29] MEDS ORDERED: methylPREDNISolone SOD SUCC 125 MG/2 ML VIAL IV ONE (14:15)
[2024-01-29] MEDS ORDERED: PEPCID20 MG PO (14:25)
[2024-01-29] MEDS ORDERED: PREDNISONE20 MG PO (14:25)
[2024-01-29 14:57] VITALS: BP 139/98
== END 2024-01-29 14:57 | disposition home or self-care (01) ==
LOC: ED 13:12
DX: R06.02 Shortness of breath (principal); T50.8X5A Adverse effect of diagnostic agents, initial encounter; I10 Essential (primary) hypertension; F17.200 Nicotine dependence, unspecified, uncomplicated; Z79.82 Long term (current) use of aspirin; Z79.899 Other long term (current) drug therapy; Z91.041 Radiographic dye allergy status
CPT/HCPCS: 96374; 99283-25; J2919; Q0163

== ENCOUNTER 2024-04-25 14:23 | Emergency (ER) | payer OTHER ==
[~2024-04-25] VITALS: Ht 170.2 cm; Wt 81.2 kg
[~2024-04-25 14:23] MED LIST changes: +PEPCID20 MG PO; +PREDNISONE20 MG PO
[2024-04-25 17:59] VITALS: BP 173/46
== END 2024-04-25 17:59 | disposition home or self-care (01) ==
LOC: ED 14:23
DX: S61.411A Laceration without foreign body of right hand, initial encounter (principal); I10 Essential (primary) hypertension; Z86.73 Personal history of transient ischemic attack (TIA), and cerebral infarction without residual deficits; F17.200 Nicotine dependence, unspecified, uncomplicated; Z91.041 Radiographic dye allergy status; Z79.82 Long term (current) use of aspirin; Z79.899 Other long term (current) drug therapy; W20.8XXA Other cause of strike by thrown, projected or falling object, initial encounter
CPT/HCPCS: 12001; 99282